=== PATIENT | male | born 1950 | race Caucasian/White ===

== ENCOUNTER 2019-12-14 08:30 | Day surgery (SDC) ==
[2019-11-05 12:20] LABS: BASOPHIL % 0.4 % (0.0-0.2); EOSINOPHIL # 0.3 10^3/uL (0.0-0.2); EOSINOPHIL % 3.5 % (0.0-5.0); LYMPHOCYTES # 1.57 10^3/uL1 (1.0-4.8); LYMPHOCYTES % 20.4 % (24.0-44.0); MEAN CORP HGB 32.6 pg (26-34); MONOCYTES # 0.4 10^3/uL (0.3-0.8); MONOCYTES % 5.5 % (5.0-12.0); NEUTROPHIL # 5.4 10^3/uL (1.8-7.7); NEUTROPHILS % 70.1 % (41.0-85.0); PLATELET COUNT 240 10^3/uL (150-400); RED CELL DISTRIBUTION WIDTH 12.8 % (11.5-14.5)
--- NOTE | 2019-11-05 12:25 | PCM.EKG ---
[facility] Test Date: 2019-11-05 Test Time: 12:21:18 Pat Name: CALIN NAVARRETE Department: Room: Gender: M [employer] Process Line Worker: : 1950 Requested By: VERONIQUE CARR Order Number: [id number] Reading MD: Measurements Intervals [place] Rate: 55 P: 68 NM: 114 QRS: 72 QRSD: 100 T: 75 QT: 467 QTc: 447 Interpretive Statements Sinus rhythm Borderline short NM interval Baseline wander in lead(s) II,V4,V5 No previous ECG available for comparison Please click the below link to view image of tracing.
[2019-11-05 12:32] LABS: CALCIUM 9.1 mg/dL (8.4-10.5); CARBON DIOXIDE 28.5 mmol/L (20.0-32)
[2019-12-12 11:31] LABS: MEAN CORP HGB 32.9 pg (26-34); RED CELL DISTRIBUTION WIDTH 12.6 % (11.5-14.5)
[2019-12-12 11:45] LABS: CALCIUM 9.2 mg/dL (8.4-10.5); CARBON DIOXIDE 27.8 mmol/L (20.0-32)
[~2019-12-14] VITALS: Ht 175.3 cm; Wt 59.0 kg
[2019-12-14] VITALS (10 sets, daily range): BP systolic 102–131; BP diastolic 51–79
[~2019-12-14 08:30] MED LIST: ASPI-485 PO; BACL20TA PO; INSU100I13 SQ; INSU100I28 SQ; LEVAQUIN 100 ML IV ONE; LISI-414 PO; MELO7.5T5 PO; METF500T17 PO; TAMS-14 PO
[2019-12-14] MEDS ORDERED: NS 1000ML 1,000 ML IV SCH (08:50)
[2019-12-14] MEDS ORDERED: VENTOLIN IH ONE (09:30)
[2019-12-14] MEDS ORDERED: CIPR500S2 PO (09:38)
[2019-12-14] MEDS ORDERED: FLUC100T4 PO (09:38)
[2019-12-14] MEDS ORDERED: LIDOCAINE 2% VIAL ONE (10:13)
[2019-12-14] MEDS ORDERED: DIPRIVAN IV ONE (10:13)
[2019-12-14] MEDS ORDERED: ZOFRAN ONE (10:13)
[2019-12-14] MEDS ORDERED: SUBLIMAZE ONE (10:13)
[2019-12-14] MEDS ORDERED: PHENERGAN IV PRN (11:30)
[2019-12-14] MEDS ORDERED: MORPHINE SULFATE IV PRN (11:30)
[2019-12-14] MEDS ORDERED: DEMEROL IV PRN (11:30)
[2019-12-14] MEDS ORDERED: SUBLIMAZE IV PRN (11:30)
[2019-12-14] MEDS ORDERED: APRESOLINE IV PRN (11:30)
[2019-12-14] MEDS ORDERED: NORCO 7.5MG PO PRN (11:30)
[2019-12-14] MEDS ORDERED: TRANDATE IV PRN (11:30)
[2019-12-14] MEDS ORDERED: XOPENEX IH PRN (11:30)
[2019-12-14] MEDS ORDERED: BENADRYL IV PRN (11:30)
[2019-12-14] MEDS ORDERED: ZOFRAN IV PRN (11:30)
[2019-12-14] MEDS ORDERED: LACTATED RINGERS 1,000 ML IV SCH (11:30)
[2019-12-14] MEDS ORDERED: TRAM50TA PO (11:32)
--- NOTE | 2019-12-14 11:53 | OPH ---
DATE OF SURGERY: 12/14/2019 PREOPERATIVE DIAGNOSIS: Right renal calculus. FINAL DIAGNOSIS: Right renal calculus. PROCEDURE: Right ESWL. DESCRIPTION OF PROCEDURE: The patient was brought to the lithotripsy room, was put in supine position on the lithotripsy table. A right renal ultrasound was initially performed which shows a stone in the lower pole of right kidney measuring 5.3 mm in diameter. There is no evidence of hydronephrosis. After the patient was given an LMA general anesthesia and after localization of the stone with the use of an ultrasound, a right ESWL was then performed using a Dornier Compact Delta lithotripter. A total of 1500 shockwaves were delivered to the stone in the lower pole of the right kidney under ultrasound guidance. After fragmentation of the stone as noted in the ultrasound, the procedure was terminated. The patient was awakened, was transferred to the recovery room in stable condition. Calixto De La Cruz MD DR: KRISSY/mak JOB# [id number]
== END 2019-12-14 13:06 | disposition home or self-care (01) ==
LOC: SDC 08:30
PROVIDERS: ATTEND Urology
DX: N20.0 Calculus of kidney (principal); E11.9 Type 2 diabetes mellitus without complications; Z79.4 Long term (current) use of insulin; Z79.899 Other long term (current) drug therapy
CPT/HCPCS: 36415 ×2; 50590; 80048 ×2; 82948 ×2; 83036; 85025; 85027; 85610 ×2; 85730 ×2; 93005; J1956; J2001; J2405; J3010; J3490; J7030

== ENCOUNTER 2019-12-19 07:03 | Inpatient (IN) | payer MEDICARE ==
[2019-12-19] VITALS (10 sets, daily range): BP systolic 97–147; BP diastolic 51–77
[~2019-12-19] VITALS: Ht 175.3 cm; Wt 60.8 kg
[~2019-12-19 07:03] MED LIST changes: +CIPR500S2 PO; +FLUC100T4 PO; +LACTATED RINGERS 1,000 ML IV SCH; +LACTATED RINGERS 1,000 ML ONE; +LASIX ONE; +NS 1000ML 1,000 ML ONE; +TRAM50TA PO; +VENTOLIN IH ONE
[2019-12-19] MEDS ORDERED: AMINOACETIC ACID IR ONE ×2 (07:04→08:23)
[2019-12-19] MEDS ORDERED: SODIUM CHLORIDE IRR BOTTLE IR ONE ×2 (07:04→08:23)
[2019-12-19] MEDS: NS 1000ML 1,000 ML IV SCH ×2 (07:20→17:00)
[2019-12-19] MEDS ORDERED: VENTOLIN IH ONE ×2 (07:27→07:30)
[2019-12-19] MEDS ORDERED: LIDOCAINE 2% VIAL ONE (07:37)
[2019-12-19] MEDS ORDERED: VERSED ONE (07:37)
[2019-12-19] MEDS ORDERED: DIPRIVAN IV ONE (07:37)
[2019-12-19] MEDS ORDERED: DILAUDID IV PRN (09:00)
[2019-12-19] MEDS ORDERED: SUBLIMAZE IV PRN (09:00)
[2019-12-19] MEDS ORDERED: DEMEROL IV PRN ×2 (09:00)
[2019-12-19] MEDS ORDERED: NORCO 7.5MG PO PRN (09:00)
[2019-12-19] MEDS ORDERED: PHENERGAN IV PRN ×3 (09:00)
--- NOTE | 2019-12-19 09:23 | OPH ---
DATE OF SURGERY: 12/19/2019 PREOPERATIVE DIAGNOSES: Obstructive prostatic hyperplasia, urinary retention. FINAL DIAGNOSES: Obstructive prostatic hyperplasia, urinary retention. PROCEDURE: TUR of the prostate. DESCRIPTION OF PROCEDURE: The patient was brought to the cystoscopy room and was put in a sitting position on the cystoscopy table and a low spinal anesthesia was then performed. After doing this, the patient was placed in supine position on the cystoscopy table. After 5 minutes, the patient was placed in the lithotomy position. The genitalia was then prepped and draped aseptically in the usual manner after removal of the urethral Skinner catheter. First, a 24-Serbian resectoscope sheath was inserted per urethra up to the bladder with the use of the 30-degree angle lens, the posterior urethra was visualized. There was obstructive prostatic hyperplasia. There are also multiple calculi noted in the bladder. There was no tumor, no ulcerations seen. Resection of the prostate was started at the bladder neck between 5 and 7, and was carried proximal to the verumontanum. The lateral lobes were resected next followed by the roof. After adequate resection of the prostatic tissue up to the prostatic capsule and after adequate hemostasis, all tissue tips were then evacuated from the bladder including the calculi, which was noted in the bladder. After proper irrigation, the return flow was clear. The instrument was removed. Skinner catheter was inserted. The patient was then transferred to the recovery room in stable condition. Calixto De La Cruz MD DR: KRISSY/mak JOB# [id number]
[2019-12-19] MEDS: NORCO 7.5MG PO PRN ×2 (15:15→20:49)
[2019-12-19] MEDS ORDERED: NS 3000ML IRR IR ONE (20:35)
[2019-12-20] MEDS: NS 1000ML 1,000 ML IV SCH (02:35)
[2019-12-20] MEDS ORDERED: NS 3000ML IRR IR ONE ×2 (03:52→08:06)
[2019-12-20] MEDS: NORCO 7.5MG PO PRN ×6 (03:57→18:37)
[2019-12-20 05:00] VITALS: BP 113/59
[2019-12-20 05:36] LABS: MEAN CORP HGB 32.8 pg (26-34); RED CELL DISTRIBUTION WIDTH 12.7 % (11.5-14.5)
[2019-12-20 06:01] LABS: CARBON DIOXIDE 26.4 mmol/L (20.0-32)
[2019-12-20 07:30] VITALS: BP 118/74
--- NOTE | 2019-12-20 08:22 | NUR ---
NORCO administered at 0822, documentation is showing it was administered again at 0930, but it was only administered at 0822.
--- NOTE | 2019-12-20 09:06 | PNH ---
DATE: 12/20/2019 The patient is postop day #1. The patient is afebrile. Urine is clear. Vital signs are stable. We will discontinue the CBI and change the IV to Hep-Lock and we will get him out of bed. The patient is doing well. Calixto De La Cruz MD DR: KRISSY/mak JOB# [id number]
--- NOTE | 2019-12-20 11:57 | NUR ---
DISCHARGE PLAN CM VISITED WITH PATIENT REGARDING D/C PLAN AND GOALS. PATIENT LIVES AT HOME WITH HIS SPOUSE. HE IS INDEPENDENT OF ADLS BUT DOES HAVE A WALKER AND CANE IN PLACE NEEDED. HIS PCP IS DR RASHAWN CARVER [place]. PATIENT DOES HAVE [facility] CURRENTLY FOR RAMÍREZ EDUCATION. PATIENT DENIES NEEDING ADDITIONAL RESOURCES AT THIS TIME. DISCHARGE PLAN IS FOR PATIENT TO D/C BACK HOME TO ROUTINE CARE AND [facility] TO FOLLOW. NO FURTHER NEEDS NOTED AT THIS TIME.
[2019-12-20 12:00] VITALS: BP 103/65
[2019-12-20 16:58] VITALS: BP 109/71
[2019-12-20 19:36] VITALS: BP 114/64
[2019-12-21 00:04] VITALS: BP 113/62
[2019-12-21] MEDS: NORCO 7.5MG PO PRN ×2 (02:44→08:01)
[2019-12-21 04:03] VITALS: BP 119/72
[2019-12-21 08:08] VITALS: BP 125/71
[2019-12-21 08:22] VITALS: BP 125/71
--- NOTE | 2019-12-21 09:25 | NUR ---
DC RAMÍREZ DC RAMÍREZ AT THIS TIME VIA ASEPTIC TECHNIQUE. CATHETER INTACT. 30 ML OF SALINE REMOVED FROM BALLOON. URINE PALE YELLOW, CLEAR WITH NO ODOR. PATIENT TOLERATED REMOVAL WELL.
--- NOTE | 2019-12-21 09:33 | PNH ---
DATE: 12/21/2019 This is postop day #2. The patient is afebrile. Urine is clear. We will remove the Skinner catheter today this morning and if he is voiding all right we will discharge him this afternoon. Vital signs are stable. The patient is doing well. Calixto De La Cruz MD DR: KRISSY/mak JOB# [id number]
[2019-12-21 11:44] VITALS: BP 118/74
[2019-12-21 12:50] VITALS: BP 118/74
--- NOTE | 2019-12-21 13:12 | NUR ---
DISCHARGE PT LEFT UNIT VIA WHEELCHAIR BY MIGUEL ISBELL. EDUCATED PATIENT AND SPOUSE ABOUT NEW MEDICATIONS WITH S/S AND S/E. PT ADVISED TO FOLLOW UP WITH PHYSICIAN IN 2-3 WEEKS OR PRN. PT AND SPOUSE VERBALIZED UNDERSTANDING.PT PROVIDED WITH PAPER DISCHARGE INSTRUCTION PACKET. PT IN NO APPARENT OR ACUTE DISTRESS. PT LEFT WITH SPOUSE VIA PERSONAL VEHICLE.
--- NOTE | 2019-12-21 15:43 | DSH ---
DATE OF DISCHARGE: 12/21/2019 SUBJECTIVE: This is a 69-year-old male who was admitted to the hospital because of urinary retention. Cystoscopy revealed a marked obstructive prostatic hyperplasia. The patient is admitted this time for definitive TUR of the prostate. LABORATORY DATA: CBC, electrolytes, BUN, creatinine within normal limits. COURSE IN HOSPITAL: The patient underwent TUR of the prostate under spinal anesthesia. There were no operative complications noted. Postoperatively, the patient did well. Today is the second day postop, the catheter was removed this morning, was voiding fairly well. Today, I am still awaiting for the path report, patient is doing well and will be followed up in the office, will be discharged today. Calixto De La Cruz MD DR: KRISSY/mak JOB# [id number]
== END 2019-12-21 13:09 | disposition home health service (06) | DRG 713 ==
LOC: SDC 07:03 → EDSTATUS 08:00 → MS 10:02
PROVIDERS: ADMIT Urology; ATTEND Urology
PROC: 0VB08ZZ Excision of Prostate, Via Natural or Artificial Opening Endoscopic (ICD-10-PCS; principal; 2019-12-19 07:57)
DX: N40.1 Benign prostatic hyperplasia with lower urinary tract symptoms (principal); N13.8 Other obstructive and reflux uropathy; R33.8 Other retention of urine; N21.0 Calculus in bladder
CPT/HCPCS: 36415; 80051; 82948; 85027; A4217; G0378; J1956; J2001; J2250; J3490; J7030; J7120; J7613; 88305; 88311; J1940

== ENCOUNTER → 2022-08-16 | Outpatient (CLI) | payer MEDICARE ==
[~2022-08-16] MED LIST changes: -FLUC100T4 PO; +FLUC100T6 PO; -INSU100I28 SQ; +INSU100I29 SQ; -LACTATED RINGERS 1,000 ML IV SCH; -LACTATED RINGERS 1,000 ML ONE; -LASIX ONE; -LEVAQUIN 100 ML IV ONE; -LISI-414 PO; +LISI5TAB18 PO; -NS 1000ML 1,000 ML ONE; -VENTOLIN IH ONE
--- NOTE | 2022-08-16 13:46 | DIREP ---
PROCEDURE:XR ABDOMEN 2 VIEWS COMPARISON:[facility], CR, XRAY CHEST 2 VWS, 10/22/2021, 03:[address], CT ABD/PELVIS W/O, 08/17/2015, 03:46 AM. INDICATIONS:N20.0 CALCULUS OF KIDNEY TECHNIQUE:Flat and upright views of the abdomen are provided. FINDINGS: BOWEL GAS PATTERN:No small bowel dilatation. Fecal residue seen throughout the colon and rectum. CALCIFICATIONS:3 mm calcification overlies the left upper quadrant, could indicate renal calculus. LUNG BASES:Clear. BONES:Lumbar dextroscoliosis. Degenerative change without evidence of acute osseus abnormality. OTHER:No additional findings. CONCLUSION: 1. Colonic and rectal fecal stasis. No small bowel dilatation. 2. 3 mm calcification overlies the left upper quadrant, could indicate renal calculus. Cross-sectional imaging could be obtained if clinically warranted. Dictated by: Vivek Mcmullen MD on 08/16/2022 at 01:42 PM
--- NOTE | 2022-08-16 13:48 | DIREP ---
PROCEDURE:CHEST 2 VIEWS [facility], [facility] CHEST 2 VWS, 10/22/2021, 03:25 PM. [facility], XRAY CHEST 2 VWS, 07/03/2021, 10:45 AM. INDICATIONS:N20.0 CALCULUS OF KIDNEY FINDINGS: LUNGS/PLEURA:Stable hyperinflation compared to prior study. No focal consolidation, pleural effusion, or pneumothorax. VASCULATURE:Normal. Unremarkable pulmonary vasculature. CARDIAC:Normal. No cardiac silhouette abnormality or cardiomegaly. MEDIASTINUM:Normal. No visible mass or adenopathy. BONES:Degenerative change without evidence of acute osseus abnormality. OTHER:Negative. CONCLUSION: 1. No acute cardiopulmonary process. 2. 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 Dictated by: Vivek Mcmullen MD on 08/16/2022 at 01:45 PM
[2022-08-16 14:01] LABS: BILIRUBIN,URINE NEGATIVE (NEGATIVE); UROBILINOGEN,URINE 0.2 E.U./dL (0.2)
[2022-08-16 14:24] LABS: YEAST,URINE FEW (NONE SEEN)
== END | disposition home or self-care (01) ==
LOC: RAD 12:40
PROVIDERS: ATTEND Internal Medicine
DX: Z12.5 Encounter for screening for malignant neoplasm of prostate (principal); K59.89 Other specified functional intestinal disorders; N20.0 Calculus of kidney; J44.9 Chronic obstructive pulmonary disease, unspecified; N39.0 Urinary tract infection, site not specified; M41.86 Other forms of scoliosis, lumbar region
CPT/HCPCS: 36415; 71046; 74019; 81001; 84153; 87086